=== PATIENT | female | born 1980 | race Caucasian/White ===

== ENCOUNTER 2021-08-18 00:50 | Inpatient (IN) | payer BC, OTHER ==
[2021-08-18] MEDS ORDERED: ETOMIDATE 2 MG/ML 10 ML VIAL IVP STA (00:56)
[2021-08-18] MEDS ORDERED: SUCCINYLCHOLINE CHLORIDE VIAL 200 MG/10 ML VIAL IV STA (00:56)
[2021-08-18 01:00] LABS: Glucose,Whole Blood 139 mg/dL (75-99)
[2021-08-18] MEDS ORDERED: SODIUM CHLORIDE 0.9% 1,000 ML IV STA (01:03)
--- NOTE | 2021-08-18 01:18 | ED ---
Overdose HPI - General Chief Complaint: Overdose Stated Complaint: Overdose Time Seen by Provider: 08/18/21 00:51 Source: EMS Mode of arrival: ambulatory Limitations: altered mental status - History of Present Illness Initial Comments: This patient is a 40-year-old woman who is brought by ambulance for suspected overdose. It is reported that EMS had been called by an associate of this patient who [place]. The patient had text did the associate that she had overdosed. She had reportedly taken 200 tablets of hydroxyzine 25 mg, and 32 tablets of diphenhydramine 50 mg, at sometime around 9 PM. EMS arrived to find the patient receiving oxygen by BVM from the fire department personnel. A total of 8 mg of Narcan was administered by fire department and EMS with no change in the patient's status. The patient did have vomitus down the front of her shirt. Patient course not able to give any history on arrival MD Complaint: intentional overdose How Overdose Was Discovered: called family/friend - Related Data Home Medications Medication Instructions Recorded Confirmed Levonorgestrel-Ethin Estradiol 1 tab PO DAILY 08/18/21 08/21/21 [Lutera-28 Tablet] Rimegepant Sulfate [Nurtec Odt] 75 mg PO DAILY PRN 08/18/21 08/21/21 Previous Rx's Medication Instructions Recorded DULoxetine HCL [Cymbalta] 60 mg PO DAILY 30 Days 08/24/21 Mirtazapine [Remeron] 30 mg PO HS 30 Days tab 08/24/21 Allergies Allergy/AdvReac Type Severity Reaction Status Date / Time trazodone AdvReac Nausea & Verified 08/21/21 17:51 Vomiting Review of Systems ROS Statement: Those systems with pertinent positive or pertinent negative responses have been documented in the HPI. ROS Other: All systems not noted in ROS Statement are negative. Limitations: ROS unobtainable due to patients medical condition Past Medical History History of Any Multi-Drug Resistant Organisms: None Reported Past Psychological History: No Psychological Hx Reported - Past Family History Mother Family Medical History: Cancer Additional Family Medical History / Comment(s): brain cancer General Exam Limitations: altered mental status General appearance: obtunded Head exam: Present: atraumatic, normocephalic Eye exam: Absent: scleral icterus, conjunctival injection Pupils: Present: miosis ENT exam: Present: mucous membranes dry Neck exam: Present: normal inspection. Absent: tenderness Respiratory exam: Present: rhonchi. Absent: respiratory distress, wheezes, rales, stridor, accessory muscle use, decreased breath sounds Cardiovascular Exam: Present: regular rate, normal rhythm, normal heart sounds. Absent: systolic murmur, diastolic murmur, rubs, gallop GI/Abdominal exam: Present: soft. Absent: distended, tenderness, guarding, rebound, rigid, mass Extremities exam: Present: normal inspection, normal capillary refill. Absent: pedal edema, calf tenderness Back exam: Present: normal inspection. Absent: CVA tenderness (R), CVA tenderness (L), vertebral tenderness Neurological exam: Present: altered Expanded Eye Response: (1) no response Motor Response: (1) no motor response Verbal Response: incomprehensible sounds Skin exam: Present: warm, dry, intact, normal color. Absent: rash Course Vital Signs 08/18/21 08/18/21 08/18/21 00:51 01:00 01:30 Temperature Pulse Rate 99 99 96 Respiratory 22 20 21 Rate Blood Pressure 118/81 121/78 125/87 O2 Sat by Pulse 95 98 100 Oximetry 08/18/21 08/18/21 08/18/21 02:30 03:00 04:00 Temperature Pulse Rate 80 81 92 Respiratory 17 Rate Blood Pressure 109/75 106/74 108/50 O2 Sat by Pulse 100 99 99 Oximetry 08/18/21 05:00 Temperature 98.3 F Pulse Rate 88 Respiratory Rate Blood Pressure 94/60 O2 Sat by Pulse 99 Oximetry Procedures - Intubation Sedative: Etomidate Mg Given: 20 Paralytic: Succinylcholine Mg Given: 100 Laryngoscope: Sammy Size: 3 ET Tube Size: 8 ET Tube Uncuffed: No Tube Secured Depth (cm): 22 Tube Secured Location: lips Tube Placement Confirmation: visualized tube passing through cords, equal breath sounds bilaterally, no breath sounds over epigastrium, confirmation by capnometry Patient Tolerated Procedure: well, no complications Intubation Complications: none Medical Decision Making - Lab Data Result diagrams: 08/19/21 04:30 08/21/21 06:09 Lab Results 08/18/21 08/18/21 08/18/21 Range/Units 00:58 01:17 01:17 WBC 8.4 (3.8-10.6) k/uL RBC 4.32 (3.80-5.40) m/uL Hgb 13.4 (11.4-16.0) gm/dL Hct 42.0 (34.0-46.0) % MCV 97.2 (80.0-100.0) fL MCH 31.1 (25.0-35.0) pg MCHC 32.0 (31.0-37.0) g/dL RDW 12.7 (11.5-15.5) % Plt Count 217 (150-450) k/uL MPV 8.4 Neutrophils % 57 % Lymphocytes % 34 % Monocytes % 5 % Eosinophils % 1 % Basophils % 1 % Neutrophils # 4.8 (1.3-7.7) k/uL Lymphocytes # 2.9 (1.0-4.8) k/uL Monocytes # 0.4 (0-1.0) k/uL Eosinophils # 0.1 (0-0.7) k/uL Basophils # 0.1 (0-0.2) k/uL Sample Site ABG pH (7.35-7.45) ABG pCO2 (35-45) mmHg ABG pO2 (83-108) mmHg ABG HCO3 (21-25) mmol/L ABG Total CO2 (19-24) mmol/L ABG O2 Saturation (94-97) % ABG Base Excess mmol/L Ricardo Test FiO2 % Sodium (137-145) mmol/L Potassium (3.5-5.1) mmol/L Chloride (98-107) mmol/L Carbon Dioxide (22-30) mmol/L Anion Gap mmol/L BUN (7-17) mg/dL Creatinine (0.52-1.04) mg/dL Est GFR (CKD-EPI)AfAm (>60 ml/min/1.73 sqM) Est GFR (CKD-EPI)NonAf (>60 ml/min/1.73 sqM) Glucose (74-99) mg/dL POC Glucose (mg/dL) 139 H (75-99) mg/dL POC Glu Cardiograph Operator ID Jerald Huerta Lactic Ac Sepsis Rflx Plasma Lactic Acid Uri (0.7-2.0) mmol/L Calcium (8.4-10.2) mg/dL Magnesium (1.6-2.3) mg/dL Total Bilirubin (0.2-1.3) mg/dL AST (14-36) U/L ALT (4-34) U/L Alkaline Phosphatase (38-126) U/L Troponin I (0.000-0.034) ng/mL Total Protein (6.3-8.2) g/dL Albumin (3.5-5.0) g/dL Urine Color Colorless Urine Appearance Clear (Clear) Urine pH 6.5 (5.0-8.0) Ur Specific Hubbard 1.008 (1.001-1.035) Urine Protein Negative (Negative) Urine Glucose (UA) Negative (Negative) Urine Ketones Negative (Negative) Urine Blood Negative (Negative) Urine Nitrite Negative (Negative) Urine Bilirubin Negative (Negative) Urine Urobilinogen <2.0 (<2.0) mg/dL Ur Leukocyte Esterase Negative (Negative) Urine HCG, Qual (Not Detectd) Salicylates mg/dL Urine Opiates Screen Not Detected (NotDetected) Ur Oxycodone Screen Not Detected (NotDetected) Urine Methadone Screen Not Detected (NotDetected) Ur Propoxyphene Screen Not Detected (NotDetected) Acetaminophen ug/mL Ur Barbiturates Screen Not Detected (NotDetected) U Tricyclic Antidepress Not Detected (NotDetected) Ur Phencyclidine Scrn Not Detected (NotDetected) Ur Amphetamines Screen Not Detected (NotDetected) U Methamphetamines Scrn Not Detected (NotDetected) U Benzodiazepines Scrn Not Detected (NotDetected) Urine Cocaine Screen Not Detected (NotDetected) U Marijuana (THC) Screen Not Detected (NotDetected) Serum Alcohol mg/dL Coronavirus (PCR) (Not Detectd) 08/18/21 08/18/21 08/18/21 Range/Units 01:17 01:17 01:17 WBC (3.8-10.6) k/uL RBC (3.80-5.40) m/uL Hgb (11.4-16.0) gm/dL Hct (34.0-46.0) % MCV (80.0-100.0) fL MCH (25.0-35.0) pg MCHC (31.0-37.0) g/dL RDW (11.5-15.5) % Plt Count (150-450) k/uL MPV Neutrophils % % Lymphocytes % % Monocytes % % Eosinophils % % Basophils % % Neutrophils # (1.3-7.7) k/uL Lymphocytes # (1.0-4.8) k/uL Monocytes # (0-1.0) k/uL Eosinophils # (0-0.7) k/uL Basophils # (0-0.2) k/uL Sample Site ABG pH (7.35-7.45) ABG pCO2 (35-45) mmHg ABG pO2 (83-108) mmHg ABG HCO3 (21-25) mmol/L ABG Total CO2 (19-24) mmol/L ABG O2 Saturation (94-97) % ABG Base Excess mmol/L Ricardo Test FiO2 % Sodium 141 (137-145) mmol/L Potassium 2.9 L (3.5-5.1) mmol/L Chloride 107 (98-107) mmol/L Carbon Dioxide 20 L (22-30) mmol/L Anion Gap 14 mmol/L BUN 10 (7-17) mg/dL Creatinine 0.58 (0.52-1.04) mg/dL Est GFR (CKD-EPI)AfAm >90 (>60 ml/min/1.73 sqM) Est GFR (CKD-EPI)NonAf >90 (>60 ml/min/1.73 sqM) Glucose 157 H (74-99) mg/dL POC Glucose (mg/dL) (75-99) mg/dL POC Glu Cardiograph Operator ID Lactic Ac Sepsis Rflx Plasma Lactic Acid Uri 2.9 H* (0.7-2.0) mmol/L Calcium 7.8 L (8.4-10.2) mg/dL Magnesium (1.6-2.3) mg/dL Total Bilirubin 0.4 (0.2-1.3) mg/dL AST 27 (14-36) U/L ALT 20 (4-34) U/L Alkaline Phosphatase 78 (38-126) U/L Troponin I (0.000-0.034) ng/mL Total Protein 6.6 (6.3-8.2) g/dL Albumin 3.9 (3.5-5.0) g/dL Urine Color Urine Appearance (Clear) Urine pH (5.0-8.0) Ur Specific Hubbard (1.001-1.035) Urine Protein (Negative) Urine Glucose (UA) (Negative) Urine Ketones (Negative) Urine Blood (Negative) Urine Nitrite (Negative) Urine Bilirubin (Negative) Urine Urobilinogen (<2.0) mg/dL Ur Leukocyte Esterase (Negative) Urine HCG, Qual Not Detected (Not Detectd) Salicylates <1.0 mg/dL Urine Opiates Screen (NotDetected) Ur Oxycodone Screen (NotDetected) Urine Methadone Screen (NotDetected) Ur Propoxyphene Screen (NotDetected) Acetaminophen <10.0 ug/mL Ur Barbiturates Screen (NotDetected) U Tricyclic Antidepress (NotDetected) Ur Phencyclidine Scrn (NotDetected) Ur Amphetamines Screen (NotDetected) U Methamphetamines Scrn (NotDetected) U Benzodiazepines Scrn (NotDetected) Urine Cocaine Screen (NotDetected) U Marijuana (THC) Screen (NotDetected) Serum Alcohol 270 H* mg/dL Coronavirus (PCR) (Not Detectd) 08/18/21 08/18/21 08/18/21 Range/Units 01:17 01:17 01:39 WBC (3.8-10.6) k/uL RBC (3.80-5.40) m/uL Hgb (11.4-16.0) gm/dL Hct (34.0-46.0) % MCV (80.0-100.0) fL MCH (25.0-35.0) pg MCHC (31.0-37.0) g/dL RDW (11.5-15.5) % Plt Count (150-450) k/uL MPV Neutrophils % % Lymphocytes % % Monocytes % % Eosinophils % % Basophils % % Neutrophils # (1.3-7.7) k/uL Lymphocytes # (1.0-4.8) k/uL Monocytes # (0-1.0) k/uL Eosinophils # (0-0.7) k/uL Basophils # (0-0.2) k/uL Sample Site rbrach ABG pH 7.42 (7.35-7.45) ABG pCO2 37 (35-45) mmHg ABG pO2 376 H (83-108) mmHg ABG HCO3 24 (21-25) mmol/L ABG Total CO2 25 H (19-24) mmol/L ABG O2 Saturation 99.9 H (94-97) % ABG Base Excess -0.6 mmol/L Ricardo Test Yes FiO2 100 % Sodium (137-145) mmol/L Potassium (3.5-5.1) mmol/L Chloride (98-107) mmol/L Carbon Dioxide (22-30) mmol/L Anion Gap mmol/L BUN (7-17) mg/dL Creatinine (0.52-1.04) mg/dL Est GFR (CKD-EPI)AfAm (>60 ml/min/1.73 sqM) Est GFR (CKD-EPI)NonAf (>60 ml/min/1.73 sqM) Glucose (74-99) mg/dL POC Glucose (mg/dL) (75-99) mg/dL POC Glu Cardiograph Operator ID Lactic Ac Sepsis Rflx Plasma Lactic Acid Uir (0.7-2.0) mmol/L Calcium (8.4-10.2) mg/dL Magnesium 1.7 (1.6-2.3) mg/dL Total Bilirubin (0.2-1.3) mg/dL AST (14-36) U/L ALT (4-34) U/L Alkaline Phosphatase (38-126) U/L Troponin I <0.012 (0.000-0.034) ng/mL Total Protein (6.3-8.2) g/dL Albumin (3.5-5.0) g/dL Urine Color Urine Appearance (Clear) Urine pH (5.0-8.0) Ur Specific Hubbard (1.001-1.035) Urine Protein (Negative) Urine Glucose (UA) (Negative) Urine Ketones (Negative) Urine Blood (Negative) Urine Nitrite (Negative) Urine Bilirubin (Negative) Urine Urobilinogen (<2.0) mg/dL Ur Leukocyte Esterase (Negative) Urine HCG, Qual (Not Detectd) Salicylates mg/dL Urine Opiates Screen (NotDetected) Ur Oxycodone Screen (NotDetected) Urine Methadone Screen (NotDetected) Ur Propoxyphene Screen (NotDetected) Acetaminophen ug/mL Ur Barbiturates Screen (NotDetected) U Tricyclic Antidepress (NotDetected) Ur Phencyclidine Scrn (NotDetected) Ur Amphetamines Screen (NotDetected) U Methamphetamines Scrn (NotDetected) U Benzodiazepines Scrn (NotDetected) Urine Cocaine Screen (NotDetected) U Marijuana (THC) Screen (NotDetected) Serum Alcohol mg/dL Coronavirus (PCR) (Not Detectd) 08/18/21 08/18/21 08/18/21 Range/Units 01:49 03:15 03:59 WBC (3.8-10.6) k/uL RBC (3.80-5.40) m/uL Hgb (11.4-16.0) gm/dL Hct (34.0-46.0) % MCV (80.0-100.0) fL MCH (25.0-35.0) pg MCHC (31.0-37.0) g/dL RDW (11.5-15.5) % Plt Count (150-450) k/uL MPV Neutrophils % % Lymphocytes % % Monocytes % % Eosinophils % % Basophils % % Neutrophils # (1.3-7.7) k/uL Lymphocytes # (1.0-4.8) k/uL Monocytes # (0-1.0) k/uL Eosinophils # (0-0.7) k/uL Basophils # (0-0.2) k/uL Sample Site ABG pH (7.35-7.45) ABG pCO2 (35-45) mmHg ABG pO2 (83-108) mmHg ABG HCO3 (21-25) mmol/L ABG Total CO2 (19-24) mmol/L ABG O2 Saturation (94-97) % ABG Base Excess mmol/L Ricardo Test FiO2 % Sodium (137-145) mmol/L Potassium (3.5-5.1) mmol/L Chloride (98-107) mmol/L Carbon Dioxide (22-30) mmol/L Anion Gap mmol/L BUN (7-17) mg/dL Creatinine (0.52-1.04) mg/dL Est GFR (CKD-EPI)AfAm (>60 ml/min/1.73 sqM) Est GFR (CKD-EPI)NonAf (>60 ml/min/1.73 sqM) Glucose (74-99) mg/dL POC Glucose (mg/dL) (75-99) mg/dL POC Glu Cardiograph Operator ID Lactic Ac Sepsis Rflx Y Plasma Lactic Acid Uri 3.2 H* (0.7-2.0) mmol/L Calcium (8.4-10.2) mg/dL Magnesium (1.6-2.3) mg/dL Total Bilirubin (0.2-1.3) mg/dL AST (14-36) U/L ALT (4-34) U/L Alkaline Phosphatase (38-126) U/L Troponin I (0.000-0.034) ng/mL Total Protein (6.3-8.2) g/dL Albumin (3.5-5.0) g/dL Urine Color Urine Appearance (Clear) Urine pH (5.0-8.0) Ur Specific Hubbard (1.001-1.035) Urine Protein (Negative) Urine Glucose (UA) (Negative) Urine Ketones (Negative) Urine Blood (Negative) Urine Nitrite (Negative) Urine Bilirubin (Negative) Urine Urobilinogen (<2.0) mg/dL Ur Leukocyte Esterase (Negative) Urine HCG, Qual (Not Detectd) Salicylates mg/dL Urine Opiates Screen (NotDetected) Ur Oxycodone Screen (NotDetected) Urine Methadone Screen (NotDetected) Ur Propoxyphene Screen (NotDetected) Acetaminophen ug/mL Ur Barbiturates Screen (NotDetected) U Tricyclic Antidepress (NotDetected) Ur Phencyclidine Scrn (NotDetected) Ur Amphetamines Screen (NotDetected) U Methamphetamines Scrn (NotDetected) U Benzodiazepines Scrn (NotDetected) Urine Cocaine Screen (NotDetected) U Marijuana (THC) Screen (NotDetected) Serum Alcohol mg/dL Coronavirus (PCR) Not Detected (Not Detectd) 08/18/21 Range/Units 04:33 WBC (3.8-10.6) k/uL RBC (3.80-5.40) m/uL Hgb (11.4-16.0) gm/dL Hct (34.0-46.0) % MCV (80.0-100.0) fL MCH (25.0-35.0) pg MCHC (31.0-37.0) g/dL RDW (11.5-15.5) % Plt Count (150-450) k/uL MPV Neutrophils % % Lymphocytes % % Monocytes % % Eosinophils % % Basophils % % Neutrophils # (1.3-7.7) k/uL Lymphocytes # (1.0-4.8) k/uL Monocytes # (0-1.0) k/uL Eosinophils # (0-0.7) k/uL Basophils # (0-0.2) k/uL Sample Site ABG pH (7.35-7.45) ABG pCO2 (35-45) mmHg ABG pO2 (83-108) mmHg ABG HCO3 (21-25) mmol/L ABG Total CO2 (19-24) mmol/L ABG O2 Saturation (94-97) % ABG Base Excess mmol/L Ricardo Test FiO2 % Sodium (137-145) mmol/L Potassium (3.5-5.1) mmol/L Chloride (98-107) mmol/L Carbon Dioxide (22-30) mmol/L Anion Gap mmol/L BUN (7-17) mg/dL Creatinine (0.52-1.04) mg/dL Est GFR (CKD-EPI)AfAm (>60 ml/min/1.73 sqM) Est GFR (CKD-EPI)NonAf (>60 ml/min/1.73 sqM) Glucose (74-99) mg/dL POC Glucose (mg/dL) (75-99) mg/dL POC Glu Cardiograph Operator ID Lactic Ac Sepsis Rflx Y Plasma Lactic Acid Uri (0.7-2.0) mmol/L Calcium (8.4-10.2) mg/dL Magnesium (1.6-2.3) mg/dL Total Bilirubin (0.2-1.3) mg/dL AST (14-36) U/L ALT (4-34) U/L Alkaline Phosphatase (38-126) U/L Troponin I (0.000-0.034) ng/mL Total Protein (6.3-8.2) g/dL Albumin (3.5-5.0) g/dL Urine Color Urine Appearance (Clear) Urine pH (5.0-8.0) Ur Specific Hubbard (1.001-1.035) Urine Protein (Negative) Urine Glucose (UA) (Negative) Urine Ketones (Negative) Urine Blood (Negative) Urine Nitrite (Negative) Urine Bilirubin (Negative) Urine Urobilinogen (<2.0) mg/dL Ur Leukocyte Esterase (Negative) Urine HCG, Qual (Not Detectd) Salicylates mg/dL Urine Opiates Screen (NotDetected) Ur Oxycodone Screen (NotDetected) Urine Methadone Screen (NotDetected) Ur Propoxyphene Screen (NotDetected) Acetaminophen ug/mL Ur Barbiturates Screen (NotDetected) U Tricyclic Antidepress (NotDetected) Ur Phencyclidine Scrn (NotDetected) Ur Amphetamines Screen (NotDetected) U Methamphetamines Scrn (NotDetected) U Benzodiazepines Scrn (NotDetected) Urine Cocaine Screen (NotDetected) U Marijuana (THC) Screen (NotDetected) Serum Alcohol mg/dL Coronavirus (PCR) (Not Detectd) - EKG Data -: EKG Interpreted by Me EKG shows normal: sinus rhythm, axis (Normal), intervals (CA interval 122 ms, QRS duration 100 ms, both normal. QTC 558 ms, prolonged.), QRS complexes (Normal) Rate: normal (Rate 96 bpm) Interpretation: nonspecific ST-T wave changes Critical Care Time Critical Care Time: Yes (40minutes) Disposition Clinical Impression: Polysubstance overdose, Suicide attempt by drug overdose Disposition: ADMITTED IP TO THIS [facility] Condition: Critical
[2021-08-18 01:20] LABS: Basophils # (A) 0.1 k/uL (0-0.2); Basophils % (A) 1 %; Eosinophils # (A) 0.1 k/uL (0-0.7); Eosinophils % (A) 1 %; HGB 13.4 gm/dL (11.4-16.0); Lymphocytes # (A) 2.9 k/uL (1.0-4.8); Lymphocytes % (A) 34 %; MCH 31.1 pg (25.0-35.0); MCV 97.2 fL (80.0-100.0); Mean Platelet Volume 8.4; Monocytes # (A) 0.4 k/uL (0-1.0); Monocytes % (A) 5 %; Neutrophils # (A) 4.8 k/uL (1.3-7.7); Neutrophils % (A) 57 %; Platelet Count 217 k/uL (150-450); RBC 4.32 m/uL (3.80-5.40); RDW 12.7 % (11.5-15.5); WBC 8.4 k/uL (3.8-10.6)
--- NOTE | 2021-08-18 01:28 | XR ---
EXAMINATION TYPE: XR chest 1V portable DATE OF EXAM: 08/18/2021 COMPARISON: NONE HISTORY: ET tube placement TECHNIQUE: Single frontal view of the chest is obtained. FINDINGS: ET tube approximately 1.9 cm above johana and NG tube is seen extending in the left upper quadrant likely within the heart size at the upper limits of normal. There is subsegmental infiltrate adjacent to left heart border. Right lung clear. No pneumothorax. No pleural effusion. Chronic rib d eformities involving the left lateral rib cage noted. IMPRESSION: 1. ET and NG tube. The position. 2. On the left heart border there is a subsegmental area of atelectasis or early infiltrate correlate clinically.
[2021-08-18 01:37] LABS: Appearance,Urine Clear (Clear); Bilirubin,Urine Negative (Negative); Blood,Urine Negative (Negative); Color,Urine Colorless; Glucose,Urine (UA) Negative (Negative); Ketones,Urine Negative (Negative); Leukocyte Esterase,Urine Negative (Negative); Nitrite,Urine Negative (Negative); PH, Urine 6.5 (5.0-8.0); Protein,Urine Negative (Negative); Specific Gravity,Urine 1.008 (1.001-1.035); Urobilinogen,Urine <2.0 mg/dL (<2.0)
[2021-08-18 01:39] LABS: ALT 20 U/L (4-34); AST 27 U/L (14-36); Acetaminophen <10.0 ug/mL; African American GFR (CKD) >90 (>60 ml/min/1.73 sqM); Albumin 3.9 g/dL (3.5-5.0); Alkaline Phosphatase 78 U/L (38-126); Anion Gap 14 mmol/L; Blood Urea Nitrogen 10 mg/dL (7-17); Calcium 7.8 mg/dL (8.4-10.2); Carbon Dioxide 20 mmol/L (22-30); Chloride 107 mmol/L (98-107); Glucose 157 mg/dL (74-99); Non-African American GFR(CKD) >90 (>60 ml/min/1.73 sqM); Potassium 2.9 mmol/L (3.5-5.1); Salicylate <1.0 mg/dL; Sodium 141 mmol/L (137-145); Total Bilirubin 0.4 mg/dL (0.2-1.3); Total Protein 6.6 g/dL (6.3-8.2)
[2021-08-18 01:44] LABS: ABG Base Excess -0.6 mmol/L; ABG HCO3 24 mmol/L (21-25); ABG Oxygen Saturation 99.9 % (94-97); ABG PCO2 37 mmHg (35-45); ABG PH 7.42 (7.35-7.45); ABG PO2 376 mmHg (83-108); ABG TCO2 25 mmol/L (19-24); Allen Test Performed? Yes
[2021-08-18 01:50] LABS: Alcohol 270 mg/dL
[2021-08-18 01:55] LABS: Amphetamine Screen,Urine Not Detected (NotDetected); Barbiturate Screen,Urine Not Detected (NotDetected); Benzodiazepines Screen,Urine Not Detected (NotDetected); Cocaine Screen,Urine Not Detected (NotDetected); Methadone Screen, Urine Not Detected (NotDetected); Opiate Screen,Urine Not Detected (NotDetected); Oxycodone Screen, Urine Not Detected (NotDetected); Phencyclidine Screen,Urine Not Detected (NotDetected); Tricyclic Antidepressant,Urine Not Detected (NotDetected); Urn Cannabinoid Scrn Not Detected (NotDetected)
[2021-08-18] MEDS ORDERED: MIDAZOLAM 1 MG/ML 5 ML VIAL IV STA (04:41)
[2021-08-18] MEDS ORDERED: NALOXONE 0.4 MG/ML 1 ML VIAL IV PRN (04:51)
[2021-08-18] MEDS: SODIUM CHLORIDE 0.9% 1,000 ML IV SCH ×3 (05:12→22:12)
[2021-08-18 05:58] LABS: Glucose,Whole Blood 117 mg/dL (75-99)
[2021-08-18] MEDS ORDERED: Potassium Replacement Protocol 1 EACH MISC MISCELLANE PRN ×2 (07:38→10:56)
[2021-08-18] MEDS ORDERED: ARTIFICIAL TEARS OINTMENT 3.5 GM TUBE BOTH EYES PRN (08:00)
[2021-08-18] MEDS ORDERED: Magnesium Replacement Protocol 1 EACH MISC MISCELLANE PRN ×2 (08:18→19:03)
[2021-08-18] MEDS: MAGNESIUM SULFATE-D5W PMX 1 GM in DEXTROSE/WATER 1 100ML.BAG IVPB SCH ×4 (08:42→22:14)
[2021-08-18] MEDS: FAMOTIDINE 20 MG/2 ML VIAL IV SCH ×2 (08:43→20:40)
[2021-08-18] MEDS: POTASSIUM BICARBONATE/CIT AC 20 MEQ TABLET.EFF NG-TUBE SCH ×3 (08:43→11:12)
[2021-08-18] MEDS ORDERED: CHLORHEXIDINE GLUCONATE 15 ML CUP MUCOUS MEM SCH (09:00)
[2021-08-18] MEDS ORDERED: TRIMETHOBENZAMIDE 100 MG/ML 2 ML VIAL IM PRN (09:24)
--- NOTE | 2021-08-18 09:26 | P.CNPUL ---
History of Present Illness Consult date: 08/18/21 Requesting physician: Tr Jackson Chief complaint: Overdose. History of present illness: Pulmonary/critical care consultation dated 08/18/2021. 40-year-old female brought in by EMS for suspected overdose. She apparently had taken a significant number of Benadryl, Vistaril, and also had an by the emergency department, the patient was essentially unresponsive and could not protect her airway. Hence, she was intubated for airway protection in the emergency room. She apparently did have some emesis down the front of her shirt according to the ER physician. She apparently took 200 tablets of Vistaril 25 mg, and 32 tablets of diphenhydramine 50 mg. Apparently she ingested these medications at 9 PM last night. Anyway, this morning, she remains on the mechanical ventilator. She is on the volume assist control mode, rate 14, tidal volume 400, FiO2 50%, and PEEP of 5. Arterial blood gases on 100%, show a PaO2 of 376, pCO2 37, and pH is 7.42. The patient is on propofol at 40 mcg/kg/m, and saline at 120 mL an hour. We are going to do a daily interruption of sedation, and give her a spontaneous breathing trial with pressure support of 5, and CPAP of 5. I suspect she'll do very well and will be able to be extubated. Of course we will get a full set a weaning parameters, and a cuff leak test. In addition, we'll put in for a psychiatric consultation. White count 8.4, hemoglobin 13.4, hematocrit 42, platelet count 217,000. Sodium 141, potassium 2.9, chlorides 107, CO2 20, anion gap 14, BUN 10, creatinine 0.58. Lactic acid was 3.6, calcium 7.8. Urine was negative. Drug screen was negative save for the elevated alcohol level. Testing for coronavirus was negative. Chest x-ray is reviewed. The placement of the endotracheal tube and the nasogastric tube are noted to be correct. There is some basilar atelectasis at the left lung base. Because the patient is currently on the ventilator, without any family members present, or anybody else to talk to, the history including social history, and family history, cannot be adequately completed. Review of Systems REVIEW OF SYSTEMS: CONSTITUTIONAL: [Negative.] NEUROLOGIC: A review of systems cannot be obtained from this patient has the patient's currently on the ventilator, and is sedated. HEENT: [ Negative.] CARDIAC: [Negative.] PULMONARY: [Negative.] GI: [Negative.] : [Negative.] RHEUMATOLOGIC: [ Negative.] IMMUNOLOGIC: [ Negative.] ENDOCRINE: [Negative. ] DERMATOLOGIC: [Negative.] Past Medical History History of Any Multi-Drug Resistant Organisms: None Reported Past Psychological History: No Psychological Hx Reported Medications and Allergies Allergies Allergy/AdvReac Type Severity Reaction Status Date / Time Unable to Assess Allergy Verified 08/18/21 00:54 Physical Exam Osteopathic Statement: *. No significant issues noted on an osteopathic structural exam other than those noted in the History and Physical/Consult. Vitals: Vital Signs Temp Pulse Resp BP Pulse Ox 08/18/21 09:00 105 H 21 117/69 100 08/18/21 08:30 91 22 109/72 100 08/18/21 08:00 98.3 F 81 25 H 110/73 100 08/18/21 07:30 82 23 116/76 100 08/18/21 07:00 81 22 114/82 100 08/18/21 06:30 98.3 F 82 22 134/86 100 08/18/21 06:00 101 H 22 131/91 97 08/18/21 05:00 88 94/60 99 08/18/21 04:00 92 108/50 99 08/18/21 03:00 81 106/74 99 08/18/21 02:30 80 17 109/75 100 08/18/21 01:30 96 21 125/87 100 08/18/21 01:00 99 20 121/78 98 08/18/21 00:51 99 22 118/81 95 Intake and Output 08/17/21 08/18/21 08/18/21 22:59 06:59 14:59 Intake Total 259.210 161.895 Output Total 75 35 Balance 184.210 126.895 Intake: IV 240 120 Sodium Chloride 0.9% 1, 240 120 000 ml @ 120 mls/hr IV . Q8H20M ABELARDO Rx#:[id number] Intake, IV Titration 19.210 41.895 Amount propofoL 1,000 mg In 19.210 41.895 Empty Bag 1 bag @ Titrate IV .Q0M ABELARDO Rx#: [id number] Output: Urine 75 35 Other: Voiding Method Indwelling Catheter Weight 79.379 kg 73.8 kg No acute distress, currently intubated and mechanically ventilated. The patient is currently sedated and on propofol. HEENT examination is grossly unremarkable. Neck supple. Full range of motion. No adenopathy thyromegaly or neck vein distention. Cardiovascular examination reveals regular rhythm rate. S1-S2 normal. No S3 or S4. No discernible murmur noted. Heart sounds are distant. Heart rate 105 bpm. Lungs reveal scattered bilateral rhonchi. No wheezes or crackles. Breath sounds equal bilaterally. Abdomen soft, without bowel sounds. No masses noted. Extremities are intact. No cyanosis clubbing or edema. Skin is without rash or lesion. Neurologic examination cannot be adequately assessed at this time, given his current level of sedation. Results - Laboratory Findings CBC and BMP: 08/18/21 01:17 08/18/21 01:17 ABG ABG pH 7.42 (7.35-7.45) 08/18/21 01:39 ABG pCO2 37 mmHg (35-45) 08/18/21 01:39 ABG pO2 376 mmHg (83-108) H 08/18/21 01:39 ABG O2 Saturation 99.9 % (94-97) H 08/18/21 01:39 Abnormal lab findings: Abnormal Labs 08/18/21 08/18/21 08/18/21 00:58 01:17 01:17 ABG pO2 ABG Total CO2 ABG O2 Saturation Potassium 2.9 L Carbon Dioxide 20 L Glucose 157 H POC Glucose (mg/dL) 139 H Plasma Lactic Acid Uri 2.9 H* Calcium 7.8 L Serum Alcohol 270 H* 08/18/21 08/18/21 08/18/21 01:39 03:59 05:56 ABG pO2 376 H ABG Total CO2 25 H ABG O2 Saturation 99.9 H Potassium Carbon Dioxide Glucose POC Glucose (mg/dL) 117 H Plasma Lactic Acid Uri 3.2 H* Calcium Serum Alcohol 08/18/21 06:44 ABG pO2 ABG Total CO2 ABG O2 Saturation Potassium Carbon Dioxide Glucose POC Glucose (mg/dL) Plasma Lactic Acid Uri 3.6 H* Calcium Serum Alcohol - Diagnostic Findings Chest x-ray: image reviewed Assessment and Plan Assessment: Status post overdose attempt, with Vistaril and Benadryl and alcohol, status post intubation and mechanical ventilation because patient unable to protect her airway. Routine ventilator management. Hypokalemia, currently being corrected. Mild lactic acidosis. Plan: Plan dated 08/18/2021. The patient will get a daily interruption of sedation and a spontaneous breathing trial, on CPAP of 5 and pressure support of 5. We'll ask for a psychiatric consult once he is extubated and fully awake. The propofol was placed on hold. Her weaning parameters were excellent including a tidal volume of 523 mL, a vital capacity of 1.5 L, a negative inspiratory force of -23, respiratory rate of 24, a minute volume of 13.8 L/m, and a rapid shallow breathing index of 38. She did have a positive cuff leak. The patient will be extubated. I told the nurses, the patient should be nothing by mouth for 6 hours post extubation. After 6 hours, the patient have sips of water chips of ice. If she tolerates that, the patient can have her diet advanced. No additional recommendations are made at this time. We will continue to follow. Prognosis is guarded. Time with Patient: Greater than 30
[2021-08-18 10:32] LABS: African American GFR (CKD) >90 (>60 ml/min/1.73 sqM); Anion Gap 17 mmol/L; Blood Urea Nitrogen 12 mg/dL (7-17); Calcium 7.4 mg/dL (8.4-10.2); Carbon Dioxide 19 mmol/L (22-30); Chloride 104 mmol/L (98-107); Glucose 163 mg/dL (74-99); Non-African American GFR(CKD) >90 (>60 ml/min/1.73 sqM); Potassium 3.2 mmol/L (3.5-5.1); Sodium 140 mmol/L (137-145)
[2021-08-18] MEDS ORDERED: SODIUM CHLORIDE 0.9% 1,000 ML IV ONE (11:03)
[2021-08-18] MEDS: POTASSIUM CHLORIDE 10 MEQ in WATER FOR INJECTION 1 100ML.BAG IVPB SCH ×4 (11:11→15:06)
[2021-08-18 12:29] LABS: Glucose,Whole Blood 95 mg/dL (75-99)
--- NOTE | 2021-08-18 14:03 | P.CN ---
Psychiatric Consult - . Consult date: 08/18/21 Consult:: 08/18/21 14:02 IDENTIFYING DATA: This patient is a single, 40-year-old female is admitted for intentional overdose HISTORY OF PRESENT ILLNESS: The patient presented to the hospital on 08/18/21, and in by EMS for suspected overdose. EMS was notified by a friend of the patient to check on the patient as the patient was endorsing suicidal ideation and informed her friend that she overdosed. The patient was admitted to the ICU and was intubated in order to protect the patient's airway. The patient is now extubated. Upon evaluation by this provider, the patient does admit that she overdosed on approximately 200 pills of hydroxyzine and Benadryl. The patient states that she did this in response to her boyfriend breaking up with her. The patient does admit that this was an attempt to take her own life. The patient did admit that she was drinking an excessive amount of alcohol prior to overdosing. She denies that this was something that she was planning, but rather was in response to her boyfriend breaking up with her. During the interview, the patient appeared to have waxing and waning consciousness and was agreeable to continue the psychiatric interview when she was feeling less sedated. PAST PSYCHIATRIC HISTORY: Unable to obtain PAST MEDICAL HISTORY: Unable to obtain ALLERGIES: Unable to assess CHEMICAL DEPENDENCY HISTORY: Patient admits to alcohol use. FAMILY PSYCHIATRIC/SUBSTANCE USE HISTORY: Unable to obtain SOCIAL HISTORY: Unable to obtain MENTAL STATUS EXAM: General Appearance: Patient appears to be stated age, dressed in hospital gown, with multiple piercings in both ears, with waxing and waning cognition Behavior: Patient is calmly lying in bed without any agitated behavior. Eye contact is appropriate. Speech: Patient's speech is fluent and nonpressured. Mood/Affect: Patient reports their mood is "depressed", affect is congruent and withdrawn. Suicidality/Homicidality: Patient endorses suicidal ideation. No homicidal ideation. Perceptions: Patient denies any visual hallucinations and denies any auditory hallucinations Though content/process: Unable to assess. Memory and concentration: Patient is alert and oriented in all spheres. Concentration is poor at this time. Judgment and insight: poor Vital Signs Temp 98.4 F 08/18/21 13:00 Pulse 85 08/18/21 13:30 Resp 23 08/18/21 13:30 BP 82/67 08/18/21 13:30 Pulse Ox 100 08/18/21 13:30 Intake & Output 08/17/21 08/18/21 08/18/21 18:59 06:59 18:59 Intake Total 516.035 6981.895 Output Total 75 360 Balance 363.107 6180.895 Weight 73.8 kg 73.8 kg Intake: IV 240 120 Sodium Chloride 0.9% 1, 240 120 000 ml @ 120 mls/hr IV . Q8H20M [facility] Rx#:[id number] Intake, IV Titration 19.210 2061.895 Amount Magnesium Sulfate-D5w Pmx 100 1 gm In Dextrose/Water 1 100ml.bag @ 100 mls/hr IVPB Q1H [facility] Rx#: [id number] Potassium Chloride 10 meq 200 In Water For Injection 1 100ml.bag @ 100 mls/hr IVPB Q1HR [facility] Rx#: [id number] Sodium Chloride 0.9% 1, 720 000 ml @ 120 mls/hr IV . Q8H20M [facility] Rx#:[id number] Sodium Chloride 0.9% 1, 1000 000 ml @ 999 mls/hr IV . Q1H1M [facility] Rx#:[id number] propofoL 1,000 mg In 19.210 41.895 Empty Bag 1 bag @ Titrate IV .Q0M [facility] Rx#: [id number] Output: Urine 75 360 Other: Voiding Method Indwelling Catheter Indwelling Catheter # Emeses 1 Laboratory Results WBC 8.4 k/uL (3.8-10.6) 08/18/21 01:17 RBC 4.32 m/uL (3.80-5.40) 08/18/21 01:17 Hgb 13.4 gm/dL (11.4-16.0) 08/18/21 01:17 Hct 42.0 % (34.0-46.0) 08/18/21 01:17 MCV 97.2 fL (80.0-100.0) 08/18/21 01:17 MCH 31.1 pg (25.0-35.0) 08/18/21 01:17 MCHC 32.0 g/dL (31.0-37.0) 08/18/21 01:17 RDW 12.7 % (11.5-15.5) 08/18/21 01:17 Plt Count 217 k/uL (150-450) 08/18/21 01:17 MPV 8.4 08/18/21 01:17 Neutrophils % 57 % 08/18/21 01:17 Lymphocytes % 34 % 08/18/21 01:17 Monocytes % 5 % 08/18/21 01:17 Eosinophils % 1 % 08/18/21 01:17 Basophils % 1 % 08/18/21 01:17 Neutrophils # 4.8 k/uL (1.3-7.7) 08/18/21 01:17 Lymphocytes # 2.9 k/uL (1.0-4.8) 08/18/21 01:17 Monocytes # 0.4 k/uL (0-1.0) 08/18/21 01:17 Eosinophils # 0.1 k/uL (0-0.7) 08/18/21 01:17 Basophils # 0.1 k/uL (0-0.2) 08/18/21 01:[address] [facility] 08/18/21 01:39 ABG pH 7.42 (7.35-7.45) 08/18/21 01:39 ABG pCO2 37 mmHg (35-45) 08/18/21 01:39 ABG pO2 376 mmHg (83-108) H 08/18/21 01:39 ABG HCO3 24 mmol/L (21-25) 08/18/21 01:39 ABG Total CO2 25 mmol/L (19-24) H 08/18/21 01:39 ABG O2 Saturation 99.9 % (94-97) H 08/18/21 01:39 ABG Base Excess -0.6 mmol/L 08/18/21 01:39 Ricardo Test Yes 08/18/21 01:39 FiO2 100 % 08/18/21 01:39 Sodium 140 mmol/L (137-145) 08/18/21 10:06 Potassium 3.2 mmol/L (3.5-5.1) L 08/18/21 10:06 Chloride 104 mmol/L (98-107) 08/18/21 10:06 Carbon Dioxide 19 mmol/L (22-30) L 08/18/21 10:06 Anion Gap 17 mmol/L 08/18/21 10:06 BUN 12 mg/dL (7-17) 08/18/21 10:06 Creatinine 0.62 mg/dL (0.52-1.04) 08/18/21 10:06 Est GFR (CKD-EPI)AfAm >90 (>60 ml/min/1.73 sqM) 08/18/21 10:06 Est GFR (CKD-EPI)NonAf >90 (>60 ml/min/1.73 sqM) 08/18/21 10:06 Glucose 163 mg/dL (74-99) H 08/18/21 10:06 POC Glucose (mg/dL) 95 mg/dL (75-99) 08/18/21 12:18 POC Glu Hand Developer ID Marnie Mccullough 08/18/21 12:18 Lactic Ac Sepsis Rflx Y 08/18/21 10:42 Plasma Lactic Acid Uri 6.1 mmol/L (0.7-2.0) H* 08/18/21 10:06 Calcium 7.4 mg/dL (8.4-10.2) L 08/18/21 10:06 Magnesium 1.7 mg/dL (1.6-2.3) 08/18/21 01:17 Total Bilirubin 0.4 mg/dL (0.2-1.3) 08/18/21 01:17 AST 27 U/L (14-36) 08/18/21 01:17 ALT 20 U/L (4-34) 08/18/21 01:17 Alkaline Phosphatase 78 U/L (38-126) 08/18/21 01:17 Troponin I <0.012 ng/mL (0.000-0.034) 08/18/21 01:17 Total Protein 6.6 g/dL (6.3-8.2) 08/18/21 01:17 Albumin 3.9 g/dL (3.5-5.0) 08/18/21 01:17 Urine Color Colorless 08/18/21 01:17 Urine Appearance Clear (Clear) 08/18/21 01:17 Urine pH 6.5 (5.0-8.0) 08/18/21 01:17 Ur Specific [place] 1.008 (1.001-1.035) 08/18/21 01:17 Urine Protein Negative (Negative) 08/18/21 01:17 Urine Glucose (UA) Negative (Negative) 08/18/21 01:17 Urine Ketones Negative (Negative) 08/18/21 01:17 Urine Blood Negative (Negative) 08/18/21 01:17 Urine Nitrite Negative (Negative) 08/18/21 01:17 Urine Bilirubin Negative (Negative) 08/18/21 01:17 Urine Urobilinogen <2.0 mg/dL (<2.0) 08/18/21 01:17 Ur Leukocyte Esterase Negative (Negative) 08/18/21 01:17 Urine HCG, Qual Not Detected (Not Detectd) 08/18/21 01:17 Salicylates <1.0 mg/dL 08/18/21 01:17 Urine Opiates Screen Not Detected (NotDetected) 08/18/21 01:17 Ur Oxycodone Screen Not Detected (NotDetected) 08/18/21 01:17 Urine Methadone Screen Not Detected (NotDetected) 08/18/21 01:17 Ur Propoxyphene Screen Not Detected (NotDetected) 08/18/21 01:17 Acetaminophen <10.0 ug/mL 08/18/21 01:17 Ur Barbiturates Screen Not Detected (NotDetected) 08/18/21 01:17 U Tricyclic Antidepress Not Detected (NotDetected) 08/18/21 01:17 Ur Phencyclidine Scrn Not Detected (NotDetected) 08/18/21 01:17 Ur Amphetamines Screen Not Detected (NotDetected) 08/18/21 01:17 U Methamphetamines Scrn Not Detected (NotDetected) 08/18/21 01:17 U Benzodiazepines Scrn Not Detected (NotDetected) 08/18/21 01:17 Urine Cocaine Screen Not Detected (NotDetected) 08/18/21 01:17 U Marijuana (THC) Screen Not Detected (NotDetected) 08/18/21 01:17 Serum Alcohol 270 mg/dL H* 08/18/21 01:17 Coronavirus (PCR) Not Detected (Not Detectd) 08/18/21 03:15 IMPRESSIONS: Intentional Overdose Rule out Major Depressive Disorder Rule out Cluster B Personality. PLAN: -At this time patient DOES meet criteria for inpatient psychiatric admission. -Would recommend the following medication changes/additions: We will hold medications at this time as the patient has had a significant overdose with an elevated QTC. -Continue 1:1 sitter for safety -Cannot leave AMA at this time. Patient will need a petition and certification if attempting to leave AMA. -When medically stable, patient is eligible for transfer to a psych bed when a vailable. -Psychiatry will reattempt the psychiatric evaluation when the patient is more appropriate.
[2021-08-18 17:38] LABS: Glucose,Whole Blood 105 mg/dL (75-99)
--- NOTE | 2021-08-18 23:12 | P.HPIM ---
History of Present Illness H&P Date: 08/18/21 Chief Complaint: Drug overdose Patient is a 40-year-old female with a known history of depression was brought to the hospital by ambulance due to suspected drug overdose. Patient apparently took 200 tablets of hydroxyzine, diphenhydramine and control pills and texted her friend who called EMS. Patient was given 8 mg of Narcan by EMS and no change in mental status was noted and patient was intubated for airway protection. Patient was transferred to MICU. Patient was on assist control with tidal volume of 400 FiO2 50% and PEEP of 5. Patient was extubated this morning. Psychiatry was consulted. Chest x-ray showed on the left border there is a subsegmental area of atelectasis or early infiltrate correlate clinically. EKG showed normal sinus rhythm with QTC 558. Laboratory data showed WBC 8.4 hemoglobin 13.4 and platelets 217 ABGs on admission showed pH of 7.42, PCO2 37 PO2 376 and bicarb 24 Sodium 141 potassium 2.9 chloride 107 bicarb is 20 BUN 10 and creatinine 0.58 and blood sugar is 157 Lactic acid was 2.9 on admission Troponin x1 - Liver enzymes are not elevated. Serum alcohol level was 270 on admission UDS and SDS negative. Coronavirus PCR not detected Review of Systems Constitutional: Patient denies any fever or chills . No generalized weakness or weight loss. Abdomen: Patient is complaining of epigastric abdominal discomfort and nausea. No diarrhea. Cardiovascular: Patient denies any chest pain or short of breath no palpitations. Respiratory: patient denied any cough or sputum production. No shortness of breath Neurologic: Patient denied any numbness or tingling headache. Musculoskeletal: Patient denies any complaints of joint swelling or deformity. Skin: Negative Psychiatric: depressed Endocrine: No heat or cold intolerance. No recent weight gain. Genitourinary: No dysuria or hematuria. All other 14 point ROS negative except the above Past Medical History Past Medical History: No Reported History Additional Past Medical History / Comment(s): past hx of suicide attempts History of Any Multi-Drug Resistant Organisms: None Reported Past Surgical History: No Surgical Hx Reported Past Anesthesia/Blood Transfusion Reactions: No Reported Reaction Past Psychological History: No Psychological Hx Reported Smoking Status: Never smoker - Past Family History Mother Family Medical History: Cancer Additional Family Medical History / Comment(s): brain cancer Medications and Allergies Home Medications Medication Instructions Recorded Confirmed Type Levonorgestrel-Ethin Estradiol 1 tab PO DAILY 08/18/21 08/18/21 History [Lutera-28 Tablet] Ramelteon 8 mg PO HS 08/18/21 08/18/21 History Rimegepant Sulfate [Nurtec Odt] 75 mg PO DAILY PRN 08/18/21 08/18/21 History hydrOXYzine HCL [Atarax] 75 mg PO HS 08/18/21 08/18/21 History Allergies Allergy/AdvReac Type Severity Reaction Status Date / Time Unable to Assess Allergy Verified 08/18/21 00:54 Physical Exam Vitals: Vital Signs Temp Pulse Resp BP Pulse Ox 08/18/21 09:00 105 H 21 117/69 100 08/18/21 08:30 91 22 109/72 100 08/18/21 08:00 98.3 F 81 25 H 110/73 100 08/18/21 07:30 82 23 116/76 100 08/18/21 07:00 81 22 114/82 100 08/18/21 06:30 98.3 F 82 22 134/86 100 08/18/21 06:00 101 H 22 131/91 97 08/18/21 05:00 98.3 F 88 94/60 99 08/18/21 04:00 92 108/50 99 08/18/21 03:00 81 106/74 99 08/18/21 02:30 80 17 109/75 100 08/18/21 01:30 96 21 125/87 100 08/18/21 01:00 99 20 121/78 98 08/18/21 00:51 99 22 118/81 95 Intake and Output 08/17/21 08/18/21 08/18/21 22:59 06:59 14:59 Intake Total 259.210 621.895 Output Total 75 160 Balance 184.210 461.895 Intake: IV 240 120 Sodium Chloride 0.9% 1, 240 120 000 ml @ 120 mls/hr IV . Q8H20M [facility] Rx#:[id number] Intake, IV Titration 19.210 501.895 Amount Magnesium Sulfate-D5w Pmx 100 1 gm In Dextrose/Water 1 100ml.bag @ 100 mls/hr IVPB Q1H [facility] Rx#: [id number] Sodium Chloride 0.9% 1, 360 000 ml @ 120 mls/hr IV . Q8H20M [facility] Rx#:[id number] propofoL 1,000 mg In 19.210 41.895 Empty Bag 1 bag @ Titrate IV .Q0M [facility] Rx#: [id number] Output: Urine 75 160 Other: Voiding Method Indwelling Catheter # Emeses 1 Weight 73.8 kg 73.8 kg PHYSICAL EXAMINATION: Patient is lying in the bed comfortably, no acute distress, awake alert and oriented.. HEENT: Normocephalic. Neck is supple. Pupils reactive. Nostrils clear. Oral cavity is moist. Neck reveals no JVD, carotid bruits, or thyromegaly. CHEST EXAMINATION: Trachea is central. Symmetrical expansion. Bibasilar diminished sounds.. Lung vides clear to auscultation and percussion. CARDIAC: Normal S1, S2 with no gallops. No murmurs ABDOMEN: Soft. Bowel sounds normal. No organomegaly. No abdominal bruits. Extremities: reveal no edema. No clubbing or cyanosis Neurologically awake, alert, oriented x3 with well-coordinated movements. No focal deficits noted Skin: No rash or skin lesions. Psychiatric: Cooperative. Musculoskeletal: No joint swelling or deformity. Normal range of motion. Results CBC & Chem 7: 08/18/21 01:17 08/18/21 17:49 Labs: Abnormal Lab Results - Last 24 Hours (Table) 08/18/21 08/18/21 08/18/21 Range/Units 00:58 01:17 01:17 ABG pO2 (83-108) mmHg ABG Total CO2 (19-24) mmol/L ABG O2 Saturation (94-97) % Potassium 2.9 L (3.5-5.1) mmol/L Carbon Dioxide 20 L (22-30) mmol/L Glucose 157 H (74-99) mg/dL POC Glucose (mg/dL) 139 H (75-99) mg/dL Plasma Lactic Acid Uri 2.9 H* (0.7-2.0) mmol/L Calcium 7.8 L (8.4-10.2) mg/dL Serum Alcohol 270 H* mg/dL 08/18/21 08/18/21 08/18/21 Range/Units 01:39 03:59 05:56 ABG pO2 376 H (83-108) mmHg ABG Total CO2 25 H (19-24) mmol/L ABG O2 Saturation 99.9 H (94-97) % Potassium (3.5-5.1) mmol/L Carbon Dioxide (22-30) mmol/L Glucose (74-99) mg/dL POC Glucose (mg/dL) 117 H (75-99) mg/dL Plasma Lactic Acid Uri 3.2 H* (0.7-2.0) mmol/L Calcium (8.4-10.2) mg/dL Serum Alcohol mg/dL 08/18/21 Range/Units 06:44 ABG pO2 (83-108) mmHg ABG Total CO2 (19-24) mmol/L ABG O2 Saturation (94-97) % Potassium (3.5-5.1) mmol/L Carbon Dioxide (22-30) mmol/L Glucose (74-99) mg/dL POC Glucose (mg/dL) (75-99) mg/dL Plasma Lactic Acid Uri 3.6 H* (0.7-2.0) mmol/L Calcium (8.4-10.2) mg/dL Serum Alcohol mg/dL Thrombosis Risk Factor Assmnt - DVT/VTE Prophylaxis DVT/VTE Prophylaxis: Mechanical Prophylaxis ordered - Choose All That Apply Any of the Below Risk Factors Present?: Yes Each Factor Represents 1 point: Age 41-60 years, Oral contraceptives or hormone replacement therapy Other Risk Factors: No Other congenital or acquired thrombophilia - If yes, enter type in comment: No Thrombosis Risk Factor Assessment Total Risk Factor Score: 2 Thrombosis Risk Factor Assessment Level: Low Risk Assessment and Plan Assessment: Acute drug overdose with hydroxyzine, diphenhydramine and oral contraceptive pills. Status post intubation and mechanical ventilation to protect airway Depression with suicide attempt QT prolongation Hypokalemia and hypomagnesemia Lactic acidosis DVT prophylaxis with early ambulation Plan: Patient was admitted to hospital due to acute drug overdose and was intubated for airway protection. Patient is currently extubated. Continue with IV hydration and symptomatic management for nausea and advance diet as tolerated. Psychiatry was consulted. Continue to replace magnesium and potassium. Continue with Pepcid IV 20 mg twice daily and follow-up closely. Currently on telemetry monitoring. Continue to monitor the patient in MICU. Critical care team is on board. Time with Patient: Greater than 30
[2021-08-19 05:31] LABS: Basophils % (A) 0 %; Eosinophils % (A) 0 %; HCT 37.2 % (34.0-46.0); HGB 12.1 gm/dL (11.4-16.0); Lymphocytes # (A) 1.9 k/uL (1.0-4.8); Lymphocytes % (A) 17 %; MCH 31.8 pg (25.0-35.0); MCHC 32.6 g/dL (31.0-37.0); MCV 97.6 fL (80.0-100.0); Mean Platelet Volume 8.2; Monocytes # (A) 0.5 k/uL (0-1.0); Monocytes % (A) 5 %; Neutrophils # (A) 8.2 k/uL (1.3-7.7); Neutrophils % (A) 76 %; Platelet Count 225 k/uL (150-450); RBC 3.81 m/uL (3.80-5.40); RDW 12.8 % (11.5-15.5); WBC 10.7 k/uL (3.8-10.6)
[2021-08-19 05:52] LABS: African American GFR (CKD) >90 (>60 ml/min/1.73 sqM); Anion Gap 6 mmol/L; Blood Urea Nitrogen 8 mg/dL (7-17); Calcium 7.9 mg/dL (8.4-10.2); Carbon Dioxide 23 mmol/L (22-30); Chloride 110 mmol/L (98-107); Glucose 86 mg/dL (74-99); Non-African American GFR(CKD) >90 (>60 ml/min/1.73 sqM); Potassium 3.9 mmol/L (3.5-5.1); Sodium 139 mmol/L (137-145)
[2021-08-19] MEDS: SODIUM CHLORIDE 0.9% 1,000 ML IV SCH (06:19)
[2021-08-19] MEDS: POTASSIUM CHLORIDE 10 MEQ in WATER FOR INJECTION 1 100ML.BAG IVPB SCH ×2 (06:19→07:25)
--- NOTE | 2021-08-19 09:05 | XR ---
EXAMINATION TYPE: XR chest 1V portable DATE OF EXAM: 08/19/2021 COMPARISON: 08/18/2021 HISTORY: Intubation TECHNIQUE: Single frontal view of the chest is obtained. FINDINGS: Subsegmental changes left lung base. Heart size normal. No overt failure or pleural effusi on. No pneumothorax. ET and NG tube have been removed. Chronic rib deformity on the left noted. IMPRESSION: Favor left basilar atelectasis or infiltrate correlate clinically.
--- NOTE | 2021-08-19 09:58 | P.PN ---
Subjective Progress Note Date: 08/19/21 Principal diagnosis: Overdose. Pulmonary/critical care consultation dated 08/18/2021. 40-year-old female brought in by EMS for suspected overdose. She apparently had taken a significant number of Benadryl, Vistaril, and also had an by the emergency department, the patient was essentially unresponsive and could not protect her airway. Hence, she was intubated for airway protection in the emergency room. She apparently did have some emesis down the front of her shirt according to the ER physician. She apparently took 200 tablets of Vistaril 25 mg, and 32 tablets of diphenhydramine 50 mg. Apparently she ingested these medications at 9 PM last night. Anyway, this morning, she remains on the mechanical ventilator. She is on the volume assist control mode, rate 14, tidal volume 400, FiO2 50%, and PEEP of 5. Arterial blood gases on 100%, show a PaO2 of 376, pCO2 37, and pH is 7.42. The patient is on propofol at 40 mcg/kg/m, and saline at 120 mL an hour. We are going to do a daily interruption of sedation, and give her a spontaneous breathing trial with pressure support of 5, and CPAP of 5. I suspect she'll do very well and will be able to be extubated. Of course we will get a full set a weaning parameters, and a cuff leak test. In addition, we'll put in for a psychiatric consultation. White count 8.4, hemoglobin 13.4, hematocrit 42, platelet count 217,000. Sodium 141, potassium 2.9, chlorides 107, CO2 20, anion gap 14, BUN 10, creatinine 0.58. Lactic acid was 3.6, calcium 7.8. Urine was negative. Drug screen was negative save for the elevated alcohol level. Testing for coronavirus was negative. Chest x-ray is reviewed. The placement of the endotracheal tube and the nasogastric tube are noted to be correct. There is some basilar atelectasis at the left lung base. Because the patient is currently on the ventilator, without any family members present, or anybody else to talk to, the history including social history, and family history, cannot be adequately completed. Progress note dated 08/19/2021. 40-year-old female brought in by EMS for overdose. The patient apparently recently broke up with her boyfriend, which caused her to become very depressed, and she ingested both Benadryl, and Vistaril. In addition, her alcohol level was high, and she was drinking wine. The patient was brought in, without a gag reflex, and she was intubated for airway protection. She was successfully extubated yesterday. Currently, she is on room air. She's getting saline at 120 mL an hour. She is starting to eat. She has also been seen by psychiatry, and may be transferred to the psychiatric floor. White count 10.7, hemoglobin hematocrit and platelet count all normal. Sodium 139, potassium 3.9, chlorides 110, CO2 23, anion gap 6, BUN 8, and creatinine 0.52. Chest x-ray is consistent with left basilar atelectasis. Objective - Vital Signs Vital signs: Vital Signs Temp 98.2 F 08/19/21 08:00 Pulse 104 H 08/19/21 08:30 Resp 21 08/19/21 08:30 BP 153/95 08/19/21 08:30 Pulse Ox 99 08/19/21 08:30 Intake & Output 08/18/21 08/19/21 08/19/21 18:59 06:59 18:59 Intake Total 3101.895 1400 460 Output Total 675 1475 450 Balance 2426.895 -75 10 Weight 73.8 kg 74.9 kg Intake: IV 120 1280 460 Magnesium Sulfate IVPB ( 200 100 ml bag) Potassium 10 Meq 100 replacement Sodium Chloride 0.9% 1, 120 1080 360 000 ml @ 120 mls/hr IV . Q8H20M [facility] Rx#:[id number] Intake, IV Titration 2981.895 120 Amount Magnesium Sulfate-D5w Pmx 100 1 gm In Dextrose/Water 1 100ml.bag @ 100 mls/hr IVPB Q1H [facility] Rx#: [id number] Potassium Chloride 10 meq 400 In Water For Injection 1 100ml.bag @ 100 mls/hr IVPB Q1HR [facility] Rx#: [id number] Sodium Chloride 0.9% 1, 1440 120 000 ml @ 120 mls/hr IV . Q8H20M [facility] Rx#:[id number] Sodium Chloride 0.9% 1, 1000 000 ml @ 999 mls/hr IV . Q1H1M [facility] Rx#:[id number] propofoL 1,000 mg In 41.895 Empty Bag 1 bag @ Titrate IV .Q0M [facility] Rx#: [id number] Output: Urine 675 1435 450 Emesis 40 Other: Voiding Method Indwelling Catheter Indwelling Catheter Indwelling Catheter # Emeses 1 - Exam No acute distress, currently on room air, with adequate saturations. HEENT examination is grossly unremarkable. Neck supple. Full range of motion. No adenopathy thyromegaly or neck vein distention. Cardiovascular examination reveals regular rhythm rate. S1-S2 normal. No S3 or S4. No discernible murmur noted. Heart sounds are distant. Heart rate 104 bpm. Lungs reveal mostly clear breath sounds. Minimal rhonchi. No wheezes or crackles. Breath sounds are equal bilaterally. Abdomen soft, without bowel sounds. No masses noted. Extremities are intact. No cyanosis clubbing or edema. Skin is without rash or lesion. Neurologic examination is brief but nonfocal. - Labs CBC & Chem 7: 08/19/21 04:30 08/19/21 04:30 Labs: Abnormal Lab Results - Last 24 Hours (Table) 08/18/21 08/18/21 08/18/21 Range/Units 10:06 10:06 17:36 WBC (3.8-10.6) k/uL Neutrophils # (1.3-7.7) k/uL Potassium 3.2 L (3.5-5.1) mmol/L Chloride (98-107) mmol/L Carbon Dioxide 19 L (22-30) mmol/L Glucose 163 H (74-99) mg/dL POC Glucose (mg/dL) 105 H (75-99) mg/dL Plasma Lactic Acid Uri 6.1 H* (0.7-2.0) mmol/L Calcium 7.4 L (8.4-10.2) mg/dL 08/18/21 08/18/21 08/19/21 Range/Units 17:49 21:08 00:43 WBC (3.8-10.6) k/uL Neutrophils # (1.3-7.7) k/uL Potassium (3.5-5.1) mmol/L Chloride (98-107) mmol/L Carbon Dioxide (22-30) mmol/L Glucose (74-99) mg/dL POC Glucose (mg/dL) (75-99) mg/dL Plasma Lactic Acid Uri 5.0 H* 4.4 H* 2.8 H* (0.7-2.0) mmol/L Calcium (8.4-10.2) mg/dL 08/19/21 08/19/21 08/19/21 Range/Units 04:26 04:30 04:30 WBC 10.7 H (3.8-10.6) k/uL Neutrophils # 8.2 H (1.3-7.7) k/uL Potassium (3.5-5.1) mmol/L Chloride 110 H (98-107) mmol/L Carbon Dioxide (22-30) mmol/L Glucose (74-99) mg/dL POC Glucose (mg/dL) (75-99) mg/dL Plasma Lactic Acid Uri 2.1 H* (0.7-2.0) mmol/L Calcium 7.9 L (8.4-10.2) mg/dL Microbiology - Last 24 Hours (Table) 08/18/21 01:35 Gram Stain - Preliminary Sputum Sputum Culture - Preliminary Assessment and Plan Assessment: Status post overdose attempt, with Vistaril and Benadryl and alcohol, status post intubation and mechanical ventilation because patient unable to protect her airway. Routine ventilator management, status post successful extubation on 08/18/2021. Hypokalemia, currently being corrected. Mild lactic acidosis. Plan: Plan dated 08/18/2021. The patient will get a daily interruption of sedation and a spontaneous breathing trial, on CPAP of 5 and pressure support of 5. We'll ask for a psychiatric consult once he is extubated and fully awake. The propofol was placed on hold. Her weaning parameters were excellent including a tidal volume of 523 mL, a vital capacity of 1.5 L, a negative inspiratory force of -23, respiratory rate of 24, a minute volume of 13.8 L/m, and a rapid shallow breathing index of 38. She did have a positive cuff leak. The patient will be extubated. I told the nurses, the patient should be nothing by mouth for 6 hours post extubation. After 6 hours, the patient have sips of water chips of ice. If she tolerates that, the patient can have her diet advanced. No additional recommendations are made at this time. We will continue to follow. Prognosis is guarded. Plan dated 08/19/2021. The patient's doing much better. She apparently has been seen by psychiatry. She apparently is a candidate for inpatient psychiatric evaluation. Clinically and medically, she is stable, and cleared to be transferred. She's currently on room air. Her IV can be discontinued. We will see the patient moving forward, just as needed. Additional recommendations and suggestions are forthcoming. Daily chest x-ray and labs can be discontinued. Time with Patient: Less than 30
[2021-08-19] MEDS: FAMOTIDINE 20 MG/2 ML VIAL IV SCH (11:46)
[2021-08-19 11:49] LABS: Glucose,Whole Blood 106 mg/dL (75-99)
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
[2021-08-19] MEDS ORDERED: POTASSIUM CHLORIDE ER 20 MEQ TAB.ER PO SCH (20:00)
[2021-08-20 10:11] LABS: ALT 23 U/L (4-34); AST 37 U/L (14-36); African American GFR (CKD) >90 (>60 ml/min/1.73 sqM); Albumin 3.6 g/dL (3.5-5.0); Albumin/Globulin Ratio 1.3; Alkaline Phosphatase 85 U/L (38-126); Anion Gap 8 mmol/L; Blood Urea Nitrogen 10 mg/dL (7-17); Calcium 9.1 mg/dL (8.4-10.2); Carbon Dioxide 22 mmol/L (22-30); Chloride 107 mmol/L (98-107); Globulin 2.8 g/dL; Glucose 97 mg/dL (74-99); Magnesium 1.8 mg/dL (1.6-2.3); Non-African American GFR(CKD) >90 (>60 ml/min/1.73 sqM); Potassium 3.9 mmol/L (3.5-5.1); Sodium 137 mmol/L (137-145); Total Bilirubin 0.9 mg/dL (0.2-1.3); Total Protein 6.4 g/dL (6.3-8.2)
[2021-08-20] MEDS: MAGNESIUM SULFATE-D5W PMX 1 GM in DEXTROSE/WATER 1 100ML.BAG IVPB SCH ×2 (12:45→13:57)
--- NOTE | 2021-08-20 12:52 | P.PN ---
Subjective Progress Note Date: 08/20/21 Principal diagnosis: InTensional drug overdose, acute hypoxic respiratory failure 40-year-old female brought in by EMS for suspected overdose. She apparently had taken a significant number of Benadryl, Vistaril, and also had an by the emergency department, the patient was essentially unresponsive and could not protect her airway. Hence, she was intubated for airway protection in the emergency room. She apparently did have some emesis down the front of her shirt according to the ER physician. She apparently took 200 tablets of Vistaril 25 mg, and 32 tablets of diphenhydramine 50 mg. Apparently she ingested these medications at 9 PM last night. Anyway, this morning, she remains on the mechanical ventilator. She is on the volume assist control mode, rate 14, tidal volume 400, FiO2 50%, and PEEP of 5. Arterial blood gases on 100%, show a PaO2 of 376, pCO2 37, and pH is 7.42. The patient is on propofol at 40 mcg/kg/m, and saline at 120 mL an hour. We are going to do a daily interruption of sedation, and give her a spontaneous breathing trial with pressure support of 5, and CPAP of 5. I suspect she'll do very well and will be able to be extubated. Of cour se we will get a full set a weaning parameters, and a cuff leak test. In addition, we'll put in for a psychiatric consultation. White count 8.4, hemoglobin 13.4, hematocrit 42, platelet count 217,000. Sodium 141, potassium 2.9, chlorides 107, CO2 20, anion gap 14, BUN 10, creatinine 0.58. Lactic acid was 3.6, calcium 7.8. Urine was negative. Drug screen was negative save for the elevated alcohol level. Testing for coronavirus was negative. Chest x-ray is reviewed. The placement of the endotracheal tube and the nasogastric tube are noted to be correct. There is some basilar atelectasis at the left lung base. Because the patient is currently on the ventilator, without any family members present, or anybody else to talk to, the history including social history, and family history, cannot be adequately completed. Progress note dated 08/19/2021. 40-year-old female brought in by EMS for overdose. The patient apparently recently broke up with her boyfriend, which caused her to become very depressed, and she ingested both Benadryl, and Vistaril. In addition, her alcohol level was high, and she was drinking wine. The patient was brought in, without a gag reflex, and she was intubated for airway protection. She was successfully extubated yesterday. Currently, she is on room air. She's getting saline at 120 mL an hour. She is starting to eat. She has also been seen by psychiatry, and may be transferred to the psychiatric floor. White count 10.7, hemoglobin hematocrit and platelet count all normal. Sodium 139, potassium 3.9, chlorides 110, CO2 23, anion gap 6, BUN 8, and creatinine 0.52. Chest x-ray is consistent with left basilar atelectasis. On 08/20/2021 patient seen in follow-up on medical surgical floor, she is breathing comfortably, she is awake and alert, oriented, vital signs have been stable, she was transferred out of intensive care unit yesterday, she was cleared medically for admission to the psychiatric unit in view of her suicidal attempt. She is being followed by psychiatry. She is breathing comfortably, room air pulse ox is 96-97%, no fever or chills, no complaints of chest pain, today's chest x-ray shows left basilar atelectasis. No seizures, and altered mentation. Poison control recommended to monitor her condition for another 24 hours and that was yesterday, and she has been stable. Today's lab work has been reviewed, electrolytes and renal profile are all within normal limits, potassium is 3.9, her AST was 37, the rest of the LFTs were within normal limits. No nausea or vomiting, she's been tolerating oral feedings. Objective - Vital Signs Vital signs: Vital Signs Temp 98.3 F 08/20/21 07:49 Pulse 77 08/20/21 07:49 Resp 16 08/20/21 07:49 BP 144/87 08/20/21 07:49 Pulse Ox 96 08/20/21 07:49 Intake & Output 08/19/21 08/20/21 08/20/21 18:59 06:59 18:59 Intake Total 460 400 Output Total 450 Balance 10 400 Intake: IV 460 Potassium 10 Meq 100 replacement Sodium Chloride 0.9% 1, 360 000 ml @ 120 mls/hr IV . Q8H20M ABELARDO Rx#:[id number] Oral 400 Output: Urine 450 Other: Voiding Method Indwelling Catheter # Voids 2 # Bowel Movements 1 - Exam GENERAL EXAM: Alert, very pleasant 40-year-old white female, breathing comfortably, unremarkable with pulse ox of 96% comfortable in no apparent distress. HEAD: Normocephalic/atraumatic. EYES: Normal reaction of pupils, equal size. Conjunctiva pink, sclera white. NOSE: Clear with pink turbinates. THROAT: No erythema or exudates. NECK: No masses, no JVD, no thyroid enlargement, no adenopathy. CHEST: No chest wall deformity. Symmetrical expansion. LUNGS: Equal air entry with no crackles, wheeze, rhonchi or dullness. CVS: Regular rate and rhythm, normal S1 and S2, no gallops, no murmurs, no rubs ABDOMEN: Soft, nontender. No hepatosplenomegaly, normal bowel sounds, no guarding or rigidity. EXTREMITIES: No clubbing, no edema, no cyanosis, 2+ pulses and upper and lower extremities. MUSCULOSKELETAL: Muscle strength and tone normal. SPINE: No scoliosis or deformity SKIN: No rashes CENTRAL NERVOUS SYSTEM: Alert and oriented -3. No focal deficits, tone is normal in all 4 extremities. PSYCHIATRIC: Alert and oriented -3. Appropriate affect. Intact judgment and insight. - Labs CBC & Chem 7: 08/19/21 04:30 08/20/21 08:56 Labs: Abnormal Lab Results - Last 24 Hours (Table) 08/20/21 Range/Units 08:56 AST 37 H (14-36) U/L Microbiology - Last 24 Hours (Table) 08/18/21 01:35 Gram Stain - Final Sputum Sputum Culture - Final Assessment and Plan Plan: Assessment: #1. Intentional drug overdose, with Vistaril, Benadryl and alcohol #2. Acute hypoxic respiratory failure related to the above, requiring intubation and mechanical ventilation related to patient's inability to protect her airway, patient was successfully weaned and extubated on 08/18/2021 #3. Hypokalemia, corrected per protocol #4. Mild lactic acidosis, improved #5. Rule out possibility of major depression Plan: From pulmonary/critical care perspective she has remained stable, she is maintai leonard stable O2 saturations on room air No difficulty breathing Vital signs has been stable She is tolerating ambulation Today's labs have been noted chest x-ray reviewed Both are unremarkable She is clear for admission to the psychiatry floor from our perspective I performed a history & physical examination of the patient and discussed their management with my nurse practitioner, Lachelle Jones. I reviewed the nurse practitioner's note and agree with the documented findings and plan of care. Lung sounds are positive for clear breath sounds throughout the lung vides. The findings and the impression was discussed with the patient. I attest to the documentation by the nurse practitioner. Time with Patient: Less than 30
[2021-08-20] MEDS: DIPHENOX-ATROP 2.5-0.025 MG 1 EACH TAB PO PRN (14:56)
[2021-08-21 06:42] LABS: ALT 23 U/L (4-34); AST 35 U/L (14-36); African American GFR (CKD) >90 (>60 ml/min/1.73 sqM); Albumin 3.7 g/dL (3.5-5.0); Albumin/Globulin Ratio 1.3; Alkaline Phosphatase 88 U/L (38-126); Anion Gap 7 mmol/L; Blood Urea Nitrogen 13 mg/dL (7-17); Calcium 9.1 mg/dL (8.4-10.2); Carbon Dioxide 28 mmol/L (22-30); Chloride 103 mmol/L (98-107); Globulin 2.9 g/dL; Glucose 96 mg/dL (74-99); Magnesium 1.9 mg/dL (1.6-2.3); Non-African American GFR(CKD) >90 (>60 ml/min/1.73 sqM); Potassium 4.5 mmol/L (3.5-5.1); Sodium 138 mmol/L (137-145); Total Bilirubin 0.8 mg/dL (0.2-1.3); Total Protein 6.6 g/dL (6.3-8.2)
[2021-08-21] MEDS: DIPHENOX-ATROP 2.5-0.025 MG 1 EACH TAB PO PRN (08:51)
[2021-08-21 09:10] VITALS: TEMP 97.9
[2021-08-21] MEDS ORDERED: Magnesium Replacement Protocol 1 EACH MISC MISCELLANE PRN (10:40)
[2021-08-21] MEDS: MAGNESIUM SULFATE-D5W PMX 1 GM in DEXTROSE/WATER 1 100ML.BAG IVPB SCH ×2 (11:13→12:06)
[2021-08-21] MEDS ORDERED: MAGNESIUM OXIDE 400 MG TAB PO STA ×2 (12:03→12:05)
--- NOTE | 2021-08-21 12:36 | P.DS ---
Providers Date of admission: 08/18/21 04:51 Expected date of discharge: 08/21/21 Attending physician: Tr Jackson Consults: 08/18/21 04:51 Consult Physician Routine Consulting Provider: Vasu Arrington Consult Reason/Comments: Overdose Do you want consulting provider notified?: Yes Consult Physician Stat Consulting Provider: Jersey Cabrera Reason/Comments: Intubated patient Do you want consulting provider notified?: Already Contacted Primary care physician: Stated None Hospital Course: 40-year-old female with a known history of depression was brought to the [facility] by ambulance due to suspected drug overdose. Patient apparently took 200 tablets of hydroxyzine, diphenhydramine and control pills and texted her friend who called EMS. Patient was given 8 mg of Narcan by EMS and no change in mental status was noted and patient was intubated for airway protection. Patient was transferred to MICU. Patient was on assist control with tidal volume of 400 FiO2 50% and PEEP of 5. Patient was extubated this morning. Psychiatry was consulted. Chest x-ray showed on the left border there is a subsegmental area of atelectasis or early infiltrate correlate clinically. EKG showed normal sinus rhythm with QTC 558. Laboratory data showed WBC 8.4 hemoglobin 13.4 and platelets 217 ABGs on admission showed pH of 7.42, PCO2 37 PO2 376 and bicarb 24 Sodium 141 potassium 2.9 chloride 107 bicarb is 20 BUN 10 and creatinine 0.58 and blood sugar is 157 Lactic acid was 2.9 on admission Troponin x1 - Liver enzymes are not elevated. Serum alcohol level was 270 on admission UDS and SDS negative. Coronavirus PCR not detected Acute drug overdose with hydroxyzine, diphenhydramine and oral contraceptive pills. Status post intubation and mechanical ventilation to protect airway Depression with suicide attempt QT prolongation Hypokalemia and hypomagnesemia Lactic acidosis DVT prophylaxis with early ambulation Patient was admitted to hospital due to acute drug overdose and was intubated for airway protection. Patient is currently extubated. Continue with IV hydration and symptomatic management for nausea and advance diet as tolerated. Psychiatry was consulted. Continue to replace magnesium and potassium. Continue with Pepcid IV 20 mg twice daily and follow-up closely. Currently on telemetry monitoring. Continue to monitor the patient in MICU. Critical care team is on board. 08/20/2021 patient seen in follow-up on medical surgical floor, she is breathing comfortably, she is awake and alert, oriented, vital signs have been stable, she was transferred out of intensive care unit yesterday, she was cleared medically for admission to the psychiatric unit in view of her suicidal attempt. She is being followed by psychiatry. She is breathing comfortably, room air pulse ox is 96-97%, no fever or chills, no complaints of chest pain, today's chest x-ray shows left basilar atelectasis. No seizures, and altered mentation. Poison control recommended to monitor her condition for another 24 hours and that was yesterday, and she has been stable. Today's lab work has been reviewed, electrolytes and renal profile are all within normal limits, potassium is 3.9, her AST was 37, the rest of the LFTs were within normal limits. No nausea or vomiting, she's been tolerating oral feedings. 08/21/21 Patient is stable and cleared fordc to psych. Plan - Discharge Summary New Discharge Prescriptions: Continue hydrOXYzine HCL [Atarax] 75 mg PO HS Ramelteon 8 mg PO HS Levonorgestrel-Ethin Estradiol [Lutera-28 Tablet] 1 tab PO DAILY Rimegepant Sulfate [Nurtec Odt] 75 mg PO DAILY PRN PRN Reason: Migraine Headache Discharge Medication List Levonorgestrel-Ethin Estradiol [Lutera-28 Tablet] 1 tab PO DAILY 08/18/21 [History] Ramelteon 8 mg PO HS 08/18/21 [History] Rimegepant Sulfate [Nurtec Odt] 75 mg PO DAILY PRN 08/18/21 [History] hydrOXYzine HCL [Atarax] 75 mg PO HS 08/18/21 [History] Follow up Appointment(s)/Referral(s): None,Stated [Primary Care Provider] - 1-2 days Discharge Disposition: TRANSFER TO PSYCH HOSP/UNIT
[2021-08-21 14:40] VITALS: BP 154/93; PULSE 81; RESP 15
== END 2021-08-21 15:50 | DRG 917 ==
LOC: EC 00:50 → 2SICU 04:51 → 4SSUR 08-19 19:24
PROVIDERS: ADMIT Hospitalist; ATTEND Hospitalist
PROC: 0BH17EZ Insertion of Endotracheal Airway into Trachea, Via Natural or Artificial Opening (ICD-10-PCS; principal; 2021-08-18)
PROC: 5A1935Z Respiratory Ventilation, Less than 24 Consecutive Hours (ICD-10-PCS; 2021-08-18)
DX: T43.592A Poisoning by other antipsychotics and neuroleptics, intentional self-harm, initial encounter (principal); J96.01 Acute respiratory failure with hypoxia; J98.11 Atelectasis; F33.2 Major depressive disorder, recurrent severe without psychotic features; E87.2 Acidosis; Z20.822 Contact with and (suspected) exposure to COVID-19; F43.10 Post-traumatic stress disorder, unspecified; Z62.810 Personal history of physical and sexual abuse in childhood; E87.6 Hypokalemia; E83.42 Hypomagnesemia; Z80.8 Family history of malignant neoplasm of other organs or systems; R94.31 Abnormal electrocardiogram [ECG] [EKG]; Z91.51 Personal history of suicidal behavior
CPT/HCPCS: 31500; 36415; 36600; 71045; 80048; 80053; 80143; 80179; 80306; 80320; 81003; 81025; 82805; 83605; 83735; 84132; 84484; 85025; 87070; 87205; 87635; 93005; 94002; 96360; 99285

== ENCOUNTER 2021-08-21 15:06 | Inpatient (IN) | payer BC ==
[2021-08-21] MEDS ORDERED: MAGNESIUM HYDROXIDE 2,400 MG/10 ML CUP PO PRN (16:39)
[2021-08-21] MEDS ORDERED: ACETAMINOPHEN TAB 325 MG TAB PO PRN (16:39)
[2021-08-21] MEDS ORDERED: MAG HYDROX/AL HYDROX/SIMETH 30 ML CUP PO PRN (16:39)
[2021-08-21] MEDS ORDERED: HALOPERIDOL LACTATE 5 MG/ML 1 ML VIAL IM PRN (16:42)
[2021-08-21] MEDS ORDERED: haloperidoL 5 MG TAB PO PRN (16:42)
[2021-08-21] MEDS ORDERED: LORazepam 2 MG/ML INJ IM PRN (16:42)
[2021-08-21] MEDS: LORazepam 1 MG TAB PO PRN (20:50)
[2021-08-22 07:29] LABS: Basophils # (A) 0.1 k/uL (0-0.2); Basophils % (A) 1 %; Eosinophils # (A) 0.1 k/uL (0-0.7); Eosinophils % (A) 2 %; HGB 14.1 gm/dL (11.4-16.0); Lymphocytes % (A) 25 %; MCH 30.8 pg (25.0-35.0); MCHC 31.4 g/dL (31.0-37.0); Mean Platelet Volume 7.7; Monocytes # (A) 0.4 k/uL (0-1.0); Monocytes % (A) 5 %; Neutrophils # (A) 5.4 k/uL (1.3-7.7); Neutrophils % (A) 66 %; Platelet Count 271 k/uL (150-450); RBC 4.59 m/uL (3.80-5.40); RDW 12.2 % (11.5-15.5); WBC 8.1 k/uL (3.8-10.6)
[2021-08-22 08:30] LABS: ALT 23 U/L (4-34); AST 28 U/L (14-36); African American GFR (CKD) >90 (>60 ml/min/1.73 sqM); Albumin 3.8 g/dL (3.5-5.0); Alkaline Phosphatase 85 U/L (38-126); Anion Gap 7 mmol/L; Blood Urea Nitrogen 14 mg/dL (7-17); Calcium 9.3 mg/dL (8.4-10.2); Carbon Dioxide 29 mmol/L (22-30); Chloride 102 mmol/L (98-107); Glucose 96 mg/dL (74-99); Non-African American GFR(CKD) >90 (>60 ml/min/1.73 sqM); Potassium 4.2 mmol/L (3.5-5.1); Sodium 138 mmol/L (137-145); Total Bilirubin 0.5 mg/dL (0.2-1.3); Total Protein 6.9 g/dL (6.3-8.2)
[2021-08-22] MEDS: LORazepam 1 MG TAB PO PRN ×2 (09:32→20:50)
[2021-08-22] MEDS: DULoxetine HCL 30 MG CAPSULE.DR PO SCH (12:26)
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
--- NOTE | 2021-08-22 18:44 | P.CONS ---
History of Present Illness - Reason for Consult Consult date: 08/22/21 Medical management - Chief Complaint Suicidal overdose - History of Present Illness 40-year-old female patient was admitted to the hospital on 08/18/2021 after she presented to ED with suspected overdose; patient was initially intubated and stabilized and successfully extubated and transferred to medical floor; patient remained stable without any complications and is transferred to psych floor for further treatment Patient does have past medical history of migraine headaches and anxiety Review of Systems REVIEW OF SYSTEMS: CONSTITUTIONAL: No fever, no malaise, no fatigue. HEENT: No recent visual problems or hearing problems. Denied any sore throat. CARDIOVASCULAR: No chest pain, orthopnea, PND, no palpitations, no syncope. PULMONARY: No shortness of breath, no cough, no hemoptysis. GASTROINTESTINAL: No diarrhea, no nausea, no vomiting, no abdominal pain. NEUROLOGICAL: No headaches, no weakness, no numbness. HEMATOLOGICAL: Denies any bleeding or petechiae. GENITOURINARY: Denies any burning micturition, frequency, or urgency. MUSCULOSKELETAL/RHEUMATOLOGICAL: Denies any joint pain, swelling, or any muscle pain. ENDOCRINE: Denies any polyuria or polydipsia. The rest of the 14-point review of systems is negative. Past Medical History Past Medical History: No Reported History Additional Past Medical History / Comment(s): past hx of suicide attempts History of Any Multi-Drug Resistant Organisms: None Reported Past Surgical History: No Surgical Hx Reported Past Anesthesia/Blood Transfusion Reactions: No Reported Reaction Past Psychological History: No Psychological Hx Reported Smoking Status: Never smoker - Past Family History Mother Family Medical History: Cancer Additional Family Medical History / Comment(s): brain cancer Medications and Allergies Home Medications Medication Instructions Recorded Confirmed Type Levonorgestrel-Ethin Estradiol 1 tab PO DAILY 08/18/21 08/21/21 History [Lutera-28 Tablet] Ramelteon 8 mg PO HS 08/18/21 08/21/21 History Rimegepant Sulfate [Nurtec Odt] 75 mg PO DAILY PRN 08/18/21 08/21/21 History hydrOXYzine HCL [Atarax] 75 mg PO HS 08/18/21 08/21/21 History Allergies Allergy/AdvReac Type Severity Reaction Status Date / Time trazodone AdvReac Nausea & Verified 08/21/21 17:51 Vomiting Physical Exam Vitals: Vital Signs Temp Pulse Resp BP Pulse Ox 08/22/21 07:03 74 17 100/72 08/21/21 16:00 97.7 F 91 16 141/98 97 Intake and Output 08/21/21 08/22/21 08/22/21 22:59 06:59 14:59 Other: Weight 71.2 kg - Constitutional General appearance: Present: average body habitus, cooperative, no acute distress - EENT Eyes: Present: anicteric sclerae, EOMI, PERRLA, normal appearance ENT: Present: hearing grossly normal, normal oropharynx Ears: bilateral: normal - Neck Neck: Present: normal ROM. Absent: lymphadenopathy, rigidity, thyromegaly Carotids: negative: bruit present Thyroid: bilateral: normal size, negative: enlarged, nodule - Respiratory Respiratory: bilateral: CTA, negative: rales, rhonchi, wheezing - Cardiovascular Rhythm: regular Heart sounds: normal: S1, S2 Abnormal Heart Sounds: Absent: systolic murmur, diastolic murmur - Gastrointestinal General gastrointestinal: Present: normal bowel sounds, soft. Absent: distended, organomegaly, tenderness - Genitourinary Genitourinary Comment(s): deferred - Integumentary Integumentary: Present: normal turgor. Absent: jaundiced, rash, ulcer - Neurologic Neurologic: Present: CNII-XII intact. Absent: focal deficits - Musculoskeletal Musculoskeletal: Present: gait normal, strength equal bilaterally - Psychiatric Psychiatric: Present: A&O x's 3, appropriate affect, intact judgment & insight Results CBC & Chem 7: 08/22/21 06:59 08/22/21 06:59 Assessment and Plan Assessment: 1. Suspected overdose; patient stated that she overdosed on over 200 pills of sleeping medication 2. History of migraine headaches; patient denies any headache at this time; reports he is using Tylenol or Motrin the past; we will monitor at this time with further recommendations if she continues to have headaches 3. Insomnia/sleep disorder; patient has been started on Remeron 15 mg daily at bedtime for mood/hepatitis/sleep 4. Mood disorder/anxiety; patient karen Cymbalta 30 mg daily along with Remeron 50 mg 2 daily at bedtime DVT prophylaxis; early ambulation CODE STATUS; full code
[2021-08-22] MEDS ORDERED: MIRTAZAPINE 15 MG TAB PO SCH (21:00)
[2021-08-23 06:39] VITALS: BP 134/82; PULSE 80; RESP 16; TEMP 97.3
[2021-08-23] MEDS: DULoxetine HCL 30 MG CAPSULE.DR PO SCH (08:34)
--- NOTE | 2021-08-23 09:54 | P.PN ---
Progress Note - Text Progress Note Date: 08/23/21 Interval history: Patient was seen wandering the hallways and was directable and agreeable to s peak with conventional mortgage underwriter. She claims that she is still feeling fairly anxious today and did not mention any improvement in her mood today. She is not describing any side effects from her medications at this time. She states that she is trying to go to groups and participate as best she can. She claims that she was able to sleep fairly last night however had difficulty initiating sleep. She was agreeable to have her Remeron increased. We spoke about different anxiety medications and patient was agreeable to average Cymbalta increased. At this time patient denies any suicidal or homicidal ideations intent or plan. Denies any Auditory or visual hallucinations. Patient denies any side effects from the medications and has been compliant with meds. Mental status exam: General Appearance: Patient appears to be stated age is alert, directable, and cooperative. Behavior: No agitated behavior. Patient is calm and directable Speech: Patient's speech is fluent and nonpressured. Mood/Affect: Mood is improving mildly, continuing to have anxiety, affect is congruent and constricted. Suicidality/Homicidality: Patient denies having any suicidal or homicidal ideation intent or plan. Perceptions: Patient denies any auditory or visual hallucinations. Though content/process: There is no evidence of any delusional thought content and thought process is linear and goal-directed. Memory and concentration: AOX3, grossly intact for the purposes of this session Judgment and insight: improving mildly Assessment/Plan: Continue with current diagnosis. Patient continues to meet criteria for inpatient psychiatric admission for symptom stabilization and safety.Patient will be maintained on current psychotropic medication regimen, except for increasing Cymbalta to 60 mg daily for mood/anxiety and increasing Remeron to 30 mg daily at bedtime for sleep/mood/appetite.. Monitor for medication compliance and for any psychotropic medication side effects. Will continue to monitor ongoing response to treatment. Encouraged participation in milieu.
[2021-08-23] MEDS: LORazepam 1 MG TAB PO PRN (14:47)
[2021-08-23] MEDS ORDERED: MIRTAZAPINE 15 MG TAB PO SCH (21:00)
[2021-08-24] MEDS: LORazepam 1 MG TAB PO PRN (08:29)
[2021-08-24] MEDS ORDERED: DULoxetine HCL 60 MG CAPSULE.DR PO SCH (09:00)
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
== END 2021-08-24 15:23 | disposition home or self-care (01) | DRG 918 ==
LOC: 3MHU 16:33
PROVIDERS: ADMIT Psychiatry & Neurology Psychiatry; ATTEND Psychiatry & Neurology Psychiatry
DX: T45.0X2A Poisoning by antiallergic and antiemetic drugs, intentional self-harm, initial encounter (principal); F32.9 Major depressive disorder, single episode, unspecified; F41.9 Anxiety disorder, unspecified; F39 Unspecified mood [affective] disorder; G43.909 Migraine, unspecified, not intractable, without status migrainosus; F22 Delusional disorders; G47.00 Insomnia, unspecified; K75.9 Inflammatory liver disease, unspecified; Z79.899 Other long term (current) drug therapy; Z88.5 Allergy status to narcotic agent
CPT/HCPCS: 80053; 84443; 85025